=== PATIENT | male | born 2000 | race American Indian/Alaskan Native ===

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

== ENCOUNTER 2021-10-27 20:49 | Emergency (ER) | payer SELFPAY ==
[2021-10-27 22:52] VITALS: BP 137/79
[2021-10-28 02:22] LABS: Bilirubin,Urine NEG (Negative); Blood,Urine MOD (Negative); Color,Urine Straw (Yellow); Mucus,Urine FEW /HPF; Protein,Urine <15 mg/dL mg/dL (Negative); Urobilinogen,Urine < 2.0 mg/dL (<2.0)
[2021-10-28] MEDS ORDERED: LIDOCAINE-MPF (1%) 10 MG/1 ML VIAL 5 ML INFILTRATI ONE (02:58)
[2021-10-28] MEDS ORDERED: PHENAZOPYRIDINE 200 MG TAB PO ONE (02:58)
--- NOTE | 2021-10-28 03:39 | Emergency Department Report ---
ED Male HPI - General Chief complaint: Urogenital-Male Stated complaint: STD CHECK Source: patient Mode of arrival: Ambulatory Limitations: No Limitations - History of Present Illness Initial comments: Patient is a 20-year-old -[place] male with no past medical history presents to the ED with chief complaint of acute onset persistent dysuria, urinary frequency and urgency and penile discharge for the last 2 weeks after having unprotected sexual intercourse with a female sexual partner. Patient states that the symptoms have been persistent since onset and that in the last 5 days the symptoms have worsened. Patient denies testicular pain, fever, chills, nausea and vomiting, low back pain, hematuria, abdominal pain, chest pain or shortness of breath. MD Complaint: penile discharge, dysuria, other (Urinary frequency and urgency) -: Sudden, week(s) (2) Location: penis Radiation: none Severity: severe Severity scale (0 -10): 7 Quality: burning, sharp Consistency: constant Improves with: none Worsens with: urination, sexual intercourse denies other symptoms, discharge, dysuria. denies: swelling, mass, rash, urinary retention, blood in urine, fever, nausea/vomiting, incontinence, other - Related Data Sexually active: Yes Previous Rx's Medication Instructions Recorded Last Taken Type Amoxicillin [Trimox CAP] 500 mg PO Q12H #20 capsule 08/07/20 Unknown Rx Ibuprofen [Motrin] 800 mg PO Q8HR PRN #30 tablet 08/07/20 Unknown Rx Doxycycline Hyclate 100 mg PO Q12H #28 cap 10/28/21 Unknown Rx Ibuprofen [Motrin] 600 mg PO Q8H PRN #20 tablet 10/28/21 Unknown Rx Allergies Allergy/AdvReac Type Severity Reaction Status Date / Time No Known Allergies Allergy Verified 10/27/21 22:54 ED Review of Systems ROS: Stated complaint: STD CHECK Other details as noted in HPI Constitutional: denies: chills, fever Eyes: denies: eye pain, eye discharge, vision change ENT: denies: ear pain, throat pain Respiratory: denies: cough, shortness of breath, wheezing Cardiovascular: denies: chest pain, palpitations Endocrine: no symptoms reported Gastrointestinal: denies: abdominal pain, nausea, diarrhea Genitourinary: urgency, dysuria, frequency, discharge. denies: hematuria, testicular pain, testicular mass Musculoskeletal: denies: back pain, joint swelling, arthralgia Skin: denies: rash, lesions Neurological: denies: headache, weakness, paresthesias Psychiatric: denies: anxiety, depression Hematological/Lymphatic: denies: easy bleeding, easy bruising ED Past Medical Hx - Past Medical History Previous Medical History?: Yes Additional medical history: CONCUSSION - Surgical History Past Surgical History?: No - Social History Smoking Status: Never Smoker Substance Use Type: None - Medications Home Medications: Home Medications Medication Instructions Recorded Confirmed Last Taken Type Amoxicillin [Trimox CAP] 500 mg PO Q12H #20 capsule 08/07/20 Unknown Rx Ibuprofen [Motrin] 800 mg PO Q8HR PRN #30 tablet 08/07/20 Unknown Rx Doxycycline Hyclate 100 mg PO Q12H #28 cap 10/28/21 Unknown Rx Ibuprofen [Motrin] 600 mg PO Q8H PRN #20 tablet 10/28/21 Unknown Rx ED Physical Exam - General Limitations: No Limitations General appearance: alert, in no apparent distress - Head Head exam: Present: atraumatic, normocephalic, normal inspection - Eye Eye exam: Present: normal appearance, PERRL, EOMI Pupils: Present: normal accommodation - ENT ENT exam: Present: normal exam, normal orophraynx, mucous membranes moist, TM's normal bilaterally, normal external ear exam - Neck Neck exam: Present: normal inspection, full ROM. Absent: tenderness, meningismus - Respiratory Respiratory exam: Present: normal lung sounds bilaterally. Absent: respiratory distress, wheezes, rales, rhonchi, chest wall tenderness, accessory muscle use, prolonged expiratory - Cardiovascular Cardiovascular Exam: Present: normal rhythm, tachycardia, normal heart sounds. Absent: systolic murmur, diastolic murmur, rubs, gallop - GI/Abdominal GI/Abdominal exam: Present: soft, normal bowel sounds. Absent: tenderness, guarding, rebound, hyperactive bowel sounds, hypoactive bowel sounds, organomegaly, mass, bruit - External exam: Present: other (Genital exam deferred) - Extremities Exam Extremities exam: Present: normal inspection, full ROM, normal capillary refill. Absent: tenderness - Back Exam Back exam: Present: normal inspection, full ROM. Absent: tenderness, CVA tenderness (R), CVA tenderness (L), muscle spasm, paraspinal tenderness, vertebral tenderness - Neurological Exam Neurological exam: Present: alert, oriented X3, CN II-XII intact, normal gait, reflexes normal - Psychiatric Psychiatric exam: Present: normal affect, normal mood - Skin Skin exam: Present: warm, dry, intact, normal color. Absent: rash ED Course Vital Signs 10/27/21 22:51 Temperature 99.2 F Pulse Rate 111 H Respiratory 18 Rate Blood Pressure 137/79 O2 Sat by Pulse 99 Oximetry ED Medical Decision Making - Medical Decision Making This is a 20-year-old -[place] male with no past medical history presents to the ED with chief complaint of acute onset persistent dysuria, urinary frequency and urgency and penile discharge for the last 2 weeks after having unprotected sexual intercourse with a female sexual partner. Patient states that the symptoms have been persistent since onset and that in the last 5 days the symptoms have worsened. In the ED, patient is alert and oriented x3 and is not in any distress. Patient tachycardic and afebrile in triage. Urinalysis showed significant white blood cells in the urine patient was empirically treated in the ED with Rocephin 1 g intramuscular injection for suspected consistent with sexually transmitted disease specifically gonorrhea or chlamydia. Patient was discharged home on medications and advised to follow-up with [facility] [place] department for further STD testing including syphilis and HIV. Patient was advised to ensure that his sexual partner also gets treated at the [facility]. Patient advised return to the ED immediately if symptoms get worse. - Differential Diagnosis Urethritis; gonorrhea; STD; chlamydia; UTI Critical care attestation.: If time is entered above; I have spent that time in minutes in the direct care of this critically ill patient, excluding procedure time. ED Disposition Clinical Impression: Urethritis, nonspecific, STD (sexually transmitted disease), Gonorrhea in male, Chlamydia trachomatis infection, Acute urinary tract infection Disposition: HOME / SELF CARE / HOMELESS Is pt being admited?: No Does the pt Need Aspirin: No Condition: Stable Instructions: Chlamydia, Male, Gonorrhea, Urinary Tract Infection, Adult, [id number], Urethritis, Adult Additional Instructions: Take medication with food, drink plenty of fluids and follow-up with the [facility] [place] department for further STD. Observe safe sexual practices. Return to the ED immediately if symptoms get worse testing including HIV and syphilis. Ensure that your sexual partner also gets treated for STD. Prescriptions: Doxycycline Hyclate 100 mg PO Q12H #28 cap Ibuprofen [Motrin] 600 mg PO Q8H PRN #20 tablet PRN Reason: Pain Referrals: [facility] [Outside] - 3-5 Days Forms: STI Treatment and Prevention Time of Disposition: 03:41 Print Language: SINGAPORE[place]
== END 2021-10-28 04:51 | disposition home or self-care (01) ==
LOC: ED 20:49
DX: N34.2 Other urethritis (principal); A64 Unspecified sexually transmitted disease; A54.9 Gonococcal infection, unspecified; A74.9 Chlamydial infection, unspecified; Z79.899 Other long term (current) drug therapy
CPT/HCPCS: 81001; 96372; 99283; J0696; J3490